=== PATIENT | male | born 1975 | race Caucasian/White ===

== ENCOUNTER 2020-04-16 07:50 | Emergency (ER) | payer BC, SELFPAY ==
--- NOTE | ~2020-04-16 | XR_ITS ---
EXAMINATION: XR abdomen/kub 1V DATE: 04/16/2020 08:59 INDICATION: Right flank pain. Kidney stone. TECHNIQUE: A supine view of the abdomen on 2 radiographs was obtained. COMPARISON: CT abdomen and pelvis 04/16/2020 FINDINGS: There is a 4 mm stone in distal right ureter. There is a 3 mm stone in right kidney. There is a 3 mm stone in left kidney. There are no dilated loops of bowel. IMPRESSION: 1. Stones in the kidneys and distal right ureter. Reviewed, dictated and finalized at location A.
--- NOTE | ~2020-04-16 | CT_ITS ---
EXAMINATION: CT abdomen pelvis wo con DATE: 04/16/2020 08:37 INDICATION: Right flank pain TECHNIQUE: Computed tomography (CT) of the abdomen and pelvis was performed without intravenous contr ast. The dose-length product (DLP) was 341.69 mGy-cm. Automated exposure control and iterative recons truction technique were employed. COMPARISON: 02/13/2018 FINDINGS: The lung bases are clear. The heart size is normal. There is a small sliding hiatal hernia. The liver, spleen, pancreas, gallbladder, and adrenal glands are normal. There is a 5 mm stone of th e right distal ureter which causes mild right hydroureteronephrosis. Nonobstructing stones of the rig ht kidney measure up to 3 mm. There are two nonobstructing 2 mm stones of the left kidney. No patholo gically enlarged abdominal or pelvic lymph nodes are identified. The appendix is normal. There is no free intraperitoneal gas or evidence of bowel obstruction. There is a tiny fat-containing umbilical h ernia. IMPRESSION: 1. 5 mm stone of the right distal ureter causing mild right hydroureteronephrosis. Consider KUB for t reatment planning purposes. 2. Bilateral nephrolithiasis. Reviewed, dictated and finalized at location A. IMPRESSION: 1. 5 mm stone of the right distal ureter causing mild right hydroureteronephros is. Consider KUB for treatment planning purposes. 2. Bilateral nephrolithiasis.
[2020-04-16 07:55] VITALS: BP 160/93; PULSE 99; RESP 18; TEMP 36.1; O2SAT 99
--- NOTE | 2020-04-16 08:06 | ED.GENADULT ---
HPI - General Adult General Chief complaint: Back Pain/Injury Stated complaint: flank pain Time Seen by Provider: 04/16/20 07:52 Source: RN notes reviewed History of Present Illness HPI narrative: Patient presents emergency department from home for right flank pain. Patient symptoms began yesterday. Pain is located right flank and does not radiate. Described as aching in nature. States he has had a previous kidney stone feels similar. States he is taken no previous pain medication. Denies any fevers or chills nausea vomiting diarrhea or any other symptoms Related Data Home Medications Medication Instructions Recorded Confirmed pantoprazole 40 mg PO 04/16/20 Allergies Allergy/AdvReac Type Severity Reaction Status Date / Time No Known Allergies Allergy Unverified 04/16/20 07:59 Review of Systems Review of Systems: Narrative: Gen.: Denies fevers or chills ENT: Denies congestion Respiratory: Denies shortness of breath or cough CV: Denies chest pain or palpitations GI: Denies abdominal pain nausea, emesis or diarrhea reports flank pain denies burning, urgency, frequency or hematuria Musculoskeletal: Denies back pain or muscle pain Neuro: Denies numbness, tingling, weakness or focal weakness Skin: Denies rash Except as documented, all other systems reviewed and negative PMFSH Past Medical History Medical History (Updated 04/16/20 @ 09:18 by Andrew Grider DO) Patient denies significant medical history Social History Social History (Updated 04/16/20 @ 08:07 by Andrew Grider DO) Smoking status: Never smoker Gender identity (if verbalized by the patient): Male Exam Narrative: Exam Narrative: APPEARANCE: No acute distress, nontoxic, resting in bed EYES: EOMI HEENT: Normocephalic, atraumatic, OMM RESPIRATORY: No respiratory distress Clear to auscultation bilaterally with no rhonchi wheezing or rales. CARDIOVASCULAR: Regular rate and rhythm without murmurs rubs or gallops. ABDOMINAL: Soft, nontender, nondistended, no rebound or guarding tender palpation right flank MUSCULOSKELETAl: Moves all extremities. No clubbing, cyanosis or edema. NEURO: Awake and alert. Following commands, speech normal, no focal deficits SKIN:: Warm, dry. No rashes lesions or abrasions PSYCHIATRIC: Normal affect/mood, Course Course Emergency Course: Discussed with patient results of workup and diagnosis. Discussed need for follow-up with primary care, proper use of medication, and reasons to return to the emergency department. Patient understands and agrees to current treatment plan Vital Signs Vital signs: Vital Signs Temperature 97 F L 04/16/20 07:55 Pulse Rate 99 04/16/20 07:55 Respiratory Rate 18 04/16/20 07:55 Blood Pressure 160/93 H 04/16/20 07:55 Pulse Oximetry 99 04/16/20 07:55 Temperature 97 F L 04/16/20 07:55 Pulse Rate 83 04/16/20 09:05 Respiratory Rate 18 04/16/20 09:05 Blood Pressure 143/98 H 04/16/20 09:05 Pulse Oximetry 98 04/16/20 09:05 Medical Decision Making Vital Signs Vital Signs: Vital Signs Temperature 97 F L 04/16/20 07:55 Pulse Rate 99 04/16/20 07:55 Respiratory Rate 18 04/16/20 07:55 Blood Pressure 160/93 H 04/16/20 07:55 Pulse Oximetry 99 04/16/20 07:55 Temperature 97 F L 04/16/20 07:55 Pulse Rate 83 04/16/20 09:05 Respiratory Rate 18 04/16/20 09:05 Blood Pressure 143/98 H 04/16/20 09:05 Pulse Oximetry 98 04/16/20 09:05 Lab Data Result diagrams: 04/16/20 08:03 04/16/20 08:03 Labs: Lab Results 04/16/20 04/16/20 04/16/20 Range/Units 08:03 08:03 08:03 WBC 7.3 (4.5-10.0) K/mm3 RBC 5.19 (4.6-6.20) M/mm3 Hgb 15.7 (14.0-18.0) g/dL Hct 47.1 (42.0-52.0) % MCV 90.8 (80-100) fl MCH 30.3 (26-34) pg MCHC 33.3 (32-36) g/dl RDW 12.4 (11.5-14.5) % Plt Count 232 (150-375) k/mm3 MPV 9.4 (7.4-10.4) fl Immature Gran % (Auto) 0.1 (0-0.
[2020-04-16 08:11] LABS: Basophils Percent Auto 0.6 % (0.2-1.2); Eosinophils Absolute Auto 0.1 K/mm3 (0-0.3); Eosinophils Percent Auto 0.8 % (0-4.4); Hematocrit 47.1 % (42.0-52.0); Hemoglobin 15.7 g/dL (14.0-18.0); Immature Granulocyte Absolute 0.01 K/mm3 (0.00-0.031); Immature Granulocyte Percent A 0.1 % (0-0.5); Lymphocytes Absolute Auto 1.53 K/mm3 (0.9-3.2); Lymphocytes Percent Auto 21.1 % (18.3-44.2); Mean Corpuscular HGB Conc 33.3 g/dl (32-36); Mean Corpuscular Hemoglobin 30.3 pg (26-34); Mean Corpuscular Volume 90.8 fl (80-100); Mean Platelet Volume 9.4 fl (7.4-10.4); Monocytes Absolute Auto 0.5 K/mm3 (0.1-0.6); Monocytes Percent Auto 7.2 % (2.6-8.5); Neutrophils Absolute Auto 5.1 K/mm3 (1.3-6.7); Neutrophils Percent Auto 70.2 % (45.5-73.1); Platelet Count Result 232 k/mm3 (150-375); Red Blood Count 5.19 M/mm3 (4.6-6.20); Red Cell Distribution Width 12.4 % (11.5-14.5); White Blood Count 7.3 K/mm3 (4.5-10.0)
[2020-04-16] MEDS: KETOROLAC 30 MG/ML VIAL (*BKC) IV PUSH (08:12)
[2020-04-16 08:13] LABS: Add Urine Microscopic? NO; Appearance Urine Clear (Clear); Bilirubin Urine Negative (Negative); Blood Urine Negative (Negative); Color Urine Yellow (Yellow); Glucose Urine UA Negative (Negative); Ketones Urine Negative (Negative); Leukocyte Esterase Ur Negative LEU/UL (Negative); Nitrate Urine Negative (Negative); Protein Urine Negative (Negative); Specific Grav Ur 1.027 (1.001-1.035); Urobilinogen Urine Negative mg/dL (<2.0)
[2020-04-16 08:22] LABS: Blood Urea Nitrogen 16 mg/dL (9-20); Calcium 9.8 mg/dL (8.4-10.2); Carbon Dioxide 27 mmol/L (22-30); Chloride 104 mmol/L (98-107); Estimated CRCL calculation 75 ml/min; Estimated Glomerular Filt Rate 60; Glucose 122 mg/dL (75-110); Potassium 3.8 mmol/L (3.4-5.0); Sodium 140 mmol/L (137-145)
[2020-04-16] MEDS: TAMSULOSIN HCL 0.4 MG CAPSULE PO (09:02)
[2020-04-16 09:05] VITALS: BP 143/98; PULSE 83; RESP 18; O2SAT 98
== END 2020-04-16 09:26 | disposition home or self-care (01) ==
PROVIDERS: Emergency Provider Emergency Medicine; PCP Internal Medicine
DX: N13.2 Hydronephrosis with renal and ureteral calculous obstruction (principal)
CPT/HCPCS: 36415; 74018; 74176; 80048; 81003; 85025; 96374; 99284; A9270; J1885

== ENCOUNTER 2020-04-29 16:23 | Outpatient (CLI) | payer BC, SELFPAY ==
--- NOTE | ~2020-04-29 | XR_ITS ---
EXAMINATION: XR abdomen/kub 1V INDICATION: Bilateral kidney stones TECHNIQUE: Supine views of the abdomen were obtained on 2 radiographs. COMPARISON: 04/16/2020 FINDINGS: The previously described right distal ureteral stone is no longer identified. A 3 mm stone is seen in the lower pole of the right kidney. The previously described left kidney stone is not defi nitely identified. The bowel gas pattern is normal. IMPRESSION: 1. Right distal ureteral stone no longer identified. 2. Unchanged right nephrolithiasis. Reviewed, dictated and finalized at location A.
== END 2020-04-29 16:24 | disposition home or self-care (01) ==
PROVIDERS: PCP Internal Medicine; Visit Provider Urology
DX: N20.2 Calculus of kidney with calculus of ureter (principal)
CPT/HCPCS: 74018

== ENCOUNTER 2021-06-14 18:45 | Emergency (ER) | payer BC, SELFPAY ==
[2021-06-14 18:53] VITALS: BP 146/99; PULSE 112; RESP 16; TEMP 41.4; O2SAT 100
[2021-06-14 19:25] VITALS: TEMP 38.1
--- NOTE | 2021-06-14 19:30 | ED.URI ---
HPI - URI/Sore Throat General Chief Complaint: Upper Respiratory Infection Stated Complaint: Headache,Congestion,Cough History of Present Illness HPI Narrative: This a 46-year-old male that has come in to be tested for Covid as he just got back from vacation in [place] patient daughter is positive for Covid and he has been symptomatic with a cough and started to not feel well. Patient is needing a rapid test to see if he is able to go to work. Patient has been vaccinated as well Related Data Home Medications Medication Instructions Recorded Confirmed pantoprazole 40 mg PO 04/16/20 Allergies Allergy/AdvReac Type Severity Reaction Status Date / Time No Known Allergies Allergy Unverified 04/16/20 07:59 Review of Systems Review of Systems: CONSTITUTIONAL: Denies fever, chills, or sweats. EYES: Denies visual changes, redness, or discharge. ENT: Reports rhinorrhea, congestion, sore throat, or otalgia. CARDIOVASCULAR:Denies chest pain, palpitations, or edema. RESPIRATORY: Denies cough or dyspnea. GASTROINTESTINAL: Denies abdominal pain, nausea, vomiting, or diarrhea. GENITOURINARY: Denies dysuria or hematuria. SKIN:[Denies rash or itching. MUSCULOSKELETAL:Denies back pain, joint pain, or myalgia. NEUROLOGIC: Denies headache, numbness, or weakness. PSYCHIATRIC:Denies anxiety or depression PMFSH Past Medical History Medical History (Updated 06/14/21 @ 19:33 by Karlee Mckeon NP) Patient denies significant medical history Social History Social History (Updated 04/16/20 @ 08:07 by Andrew Grider DO) Smoking status: Never smoker Gender identity (if verbalized by the patient): Male Exam Narrative: GENERAL:Well-appearing, well-nourished, and in no acute distress. HEAD:Normocephalic, atraumatic. EYES: PERRLA and EOMI. ENT: Nares clear, no rhinorrhea or epistaxis. Mucous membranes moist. Pharyngeal erythema NECK: Supple. CHEST: Clear to occasional sporadic wheezes auscultation. No respiratory distress. HEART: Regular rate and tachycardic rhythm. Normal peripheral pulses. ABDOMEN: Soft, nontender, nondistended, normal active bowel sounds. EXTREMITIES: Normal range of motion. No edema. SKIN: Warm, dry, no rash. NEURO: No focal deficits. Alert and oriented x3. 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 Positive for Covid Vital Signs Vital signs: Vital Signs Temperature 106.6 F H 06/14/21 18:53 Pulse Rate 112 H 06/14/21 18:53 Respiratory Rate 16 06/14/21 18:53 Blood Pressure 146/99 H 06/14/21 18:53 Pulse Oximetry 100 06/14/21 18:53 Temperature 106.6 F H 06/14/21 18:53 Pulse Rate 112 H 06/14/21 18:53 Respiratory Rate 16 06/14/21 18:53 Blood Pressure 146/99 H 06/14/21 18:53 Pulse Oximetry 100 06/14/21 18:53 MDM - URI/Sore Throat Differential Diagnosis Differential diagnosis: Likely upper respiratory infection, otitis media, sinusitis, viral infection, bronchitis, influenza and pharyngitis Lab Data Labs: Lab Results 06/14/21 Range/Units 19:18 POC SARS CoV-2 Ag Positive (Negative) Discharge Plan Discharge Clinical Impression: COVID-19 Hypertension Qualifiers: Hypertension type: unspecified Qualified Code(s): I10 - Essential (primary) hypertension Patient Disposition: Home, Self-Care Condition: Stable Instructions: Antibiotic Form, How To Wash Your Hands (ED), COVID-19 (Coronavirus Disease 2019) (ED), Face Coverings (Masks) and COVID-19 (ED) Additional Instructions: Covid instructions FOR THE PATIENT AND HOUSEHOLD MEMBERS: Self-quarantine for at least 7 days from symptom onset plus 3 days after being symptom free. When self-quarantined, stay home and practice infection prevention practices including: ? Stay home when you are sick (fever, cough, upper respiratory infection symptoms) ? Wash your hands often with soap and water for 20 seconds or use an alcohol-based hand outboard system operator, especially before eating, after coughing or sneezing and
== END 2021-06-14 19:34 | disposition home or self-care (01) ==
PROVIDERS: Emergency Provider Nurse Practitioner Family; PCP Internal Medicine
DX: U07.1 COVID-19 (principal); I10 Essential (primary) hypertension
CPT/HCPCS: 87426; 99213; C9803; G0463

== ENCOUNTER 2021-11-28 13:09 | Emergency (ER) | payer BC, SELFPAY ==
--- NOTE | ~2021-11-28 | CT_ITS ---
EXAMINATION: CT abd pelvis lumbar wo con DATE: 11/28/2021 14:59 INDICATION: Left flank pain. TECHNIQUE: Computed tomography (CT) of the abdomen and pelvis and lumbar spine was performed without intravenous contrast. Automated exposure control and iterative reconstruction technique were employed . The dose-length product was 1165.82 mGy-cm. COMPARISON: CT abdomen and pelvis 04/16/2020 FINDINGS: CT ABDOMEN AND PELVIS: The visualized portions of the lung bases demonstrate mild atelectasis. No ple ural effusion. The heart size is normal. No pericardial effusion. There is a small sliding hiatal her natasha. There is diffuse hepatic steatosis. The gallbladder, spleen, pancreas, adrenal glands, and right kidney are normal. There are 1 mm and 2 mm stones in left kidney. There is mild left hydronephrosis and hydroureter. There is a 3 mm stone in distal left ureter. There is diverticulosis of the colon wi thout evidence of diverticulitis. The appendix is normal. There are no pathologically enlarged lymph nodes. There is no free intraperitoneal fluid. There is prominent fat in the inguinal canals that may be hernias. CT LUMBAR SPINE: Bone alignment is normal. Partially visualized is chronic anterior wedging of T11 ve rtebral body. There is mild chronic anterior wedging of T12 vertebral body. There is mildly decreased disc height at L4-L5. The following disc levels are specifically discussed: L1-L2: The disc does not extend beyond the endplate margin. There is mild bilateral facet joint osteo arthritis. There is no neural foraminal stenosis. There is no central canal stenosis. L2-L3: The disc does not extend beyond the endplate margin. There is mild bilateral facet joint osteo arthritis. There is no neural foraminal stenosis. There is no central canal stenosis. L3-L4: The disc does not extend beyond the endplate margin. There is mild bilateral facet joint osteo arthritis. There is no neural foraminal stenosis. There is no central canal stenosis. L4-L5: The disc is bulging. There is mild bilateral facet joint osteoarthritis. There is mild bilater al neural foraminal stenosis. There is mild central canal stenosis. L5-S1: The disc does not extend beyond the endplate margin. There is mild bilateral facet joint osteo arthritis. There is no neural foraminal stenosis. There is no central canal stenosis. IMPRESSION: 1. 3 mm stone in distal left ureter with mild left hydronephrosis and hydroureter. 2. Small nonobstructing left kidney stones. 3. Mild lumbar spondylosis. Reviewed, dictated and finalized at location A. 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 3 mm stone in distal left ureter with mild left hydronephrosis and hydrouret er. 2. Small nonobstructing left kidney stones. 3. Mild lumbar spondylosis.
[2021-11-28 13:12] VITALS: BP 156/88; PULSE 109; RESP 16; TEMP 36.2; O2SAT 99
[2021-11-28 13:54] VITALS: BP 143/92; PULSE 105; RESP 18; TEMP 36.8; O2SAT 98
[2021-11-28 14:17] LABS: Basophils Absolute Auto 0.1 K/mm3 (0.0-0.1); Basophils Percent Auto 0.4 % (0.2-1.2); Eosinophils Percent Auto 0.1 % (0-4.4); Hematocrit 46.1 % (42.0-52.0); Hemoglobin 15.5 g/dL (14.0-18.0); Immature Granulocyte Absolute 0.04 K/mm3 (0.00-0.031); Immature Granulocyte Percent A 0.3 % (0-0.5); Lymphocytes Absolute Auto 0.84 K/mm3 (0.9-3.2); Lymphocytes Percent Auto 6.4 % (18.3-44.2); Mean Corpuscular HGB Conc 33.6 g/dl (32-36); Mean Corpuscular Hemoglobin 30.9 pg (26-34); Mean Platelet Volume 9.2 fl (7.4-10.4); Monocytes Absolute Auto 0.7 K/mm3 (0.1-0.6); Neutrophils Absolute Auto 11.5 K/mm3 (1.3-6.7); Neutrophils Percent Auto 87.8 % (45.5-73.1); Platelet Count Result 227 k/mm3 (150-375); Red Blood Count 5.01 M/mm3 (4.6-6.20); Red Cell Distribution Width 12.7 % (11.5-14.5); White Blood Count 13.1 K/mm3 (4.5-10.0)
[2021-11-28 14:28] LABS: Add Urine Microscopic? YES; Appearance Urine Clear (Clear); Bilirubin Urine Negative (Negative); Blood Urine Negative (Negative); Color Urine Yellow (Yellow); Glucose Urine UA Negative (Negative); Ketones Urine Trace mg/dL (Negative); Leukocyte Esterase Ur Negative LEU/UL (Negative); Mucus Urine Rare /lpf; Nitrate Urine Negative (Negative); Protein Urine Negative (Negative); RBC Urine 0-2 /hpf (0-2); Specific Grav Ur 1.024 (1.001-1.035); Urobilinogen Urine Negative mg/dL (<2.0); WBC Urine 0-3 /hpf
[2021-11-28 14:28] LABS: Alanine Aminotransferase 84 U/L (4-50); Albumin Level 4.9 g/dL (3.5-5.1); Alkaline Phosphatase 69 U/L (38-126); Anion Gap 9 mmol/L (8-16); Aspartate Amino Transferase 55 U/L (17-59); Bilirubin,Total 0.9 mg/dL (0.2-1.3); Blood Urea Nitrogen 17 mg/dL (9-20); Calcium 9.8 mg/dL (8.4-10.2); Carbon Dioxide 24 mmol/L (22-30); Chloride 104 mmol/L (98-107); Estimated CRCL calculation 71 ml/min; Estimated Glomerular Filt Rate 55; Glucose 154 mg/dL (65-110); Lipase 91 U/L (23-300); Potassium 4.1 mmol/L (3.4-5.0); Sodium 137 mmol/L (137-145)
[2021-11-28 14:47] VITALS: BP 145/90; PULSE 89; RESP 17; O2SAT 95
--- NOTE | 2021-11-28 14:47 | ED.BACK ---
HPI - Back Pain/Injury General Chief Complaint: Back Pain/Injury Stated Complaint: left lower back pain Time Seen by Provider: 11/28/21 13:48 Source: patient Mode of arrival: ambulatory Limitations: no limitations History of Present Illness HPI Narrative: This is a 46 year old male that presents to the ER for left sided flank pain present since last night. Reports a constant dull ache and intermittent sharp pains. Feels similar to past kidney stones. Reports urinary frequency. He took a hydrocodone today with some relief. Denies fever, dysuria or hematuria. Related Data Home Medications Medication Instructions Recorded Confirmed pantoprazole 40 mg PO 04/16/20 Allergies Allergy/AdvReac Type Severity Reaction Status Date / Time No Known Allergies Allergy Unverified 04/16/20 07:59 Review of Systems Review of Systems: CONSTITUTIONAL: Denies fever GASTROINTESTINAL: Reports abdominal pain. Denies nausea, vomiting GENITOURINARY: Denies dysuria or hematuria. SKIN: Denies rash All systems reviewed & are unremarkable except as noted in HPI and below PMFSH Past Medical History Medical History (Updated 11/28/21 @ 16:04 by Edwige Day PA-C) Patient denies significant medical history Social History Social History (Updated 04/16/20 @ 08:07 by Andrew Grider DO) Smoking status: Never smoker Gender identity (if verbalized by the patient): Male Exam Narrative: GENERAL: Well-appearing, well-nourished, and in no acute distress. HEAD: Normocephalic, atraumatic. EYES: EOMI. CHEST: Clear to auscultation. No respiratory distress. No wheezes rales or rhonchi HEART: Regular rate and rhythm. No murmur heard. Normal peripheral pulses. ABDOMEN: Soft, nontender, nondistended, normal active bowel sounds. No CVA tenderness EXTREMITIES: Normal range of motion. No edema. SKIN: Warm, dry, no rash. NEURO: No focal deficits. Alert and oriented x3. PSYCH: Normal mood and affect Course Consultations Consultation #1: Spoke with Dr. Baez about patient and workup. Patient will be started on Flomax and given pain medication. Patient is to follow up in clinic. Date: 11/28/21 Time: 15:30 Vital Signs Vital signs: Vital Signs Temperature 97.2 F L 11/28/21 13:12 Pulse Rate 109 H 11/28/21 13:12 Respiratory Rate 16 11/28/21 13:12 Blood Pressure 156/88 H 11/28/21 13:12 Pulse Oximetry 99 11/28/21 13:12 Temperature 98.3 F 11/28/21 13:54 Pulse Rate 89 11/28/21 14:47 Respiratory Rate 17 11/28/21 14:47 Blood Pressure 145/90 H 11/28/21 14:47 Pulse Oximetry 95 11/28/21 14:47 MDM - Back Pain/Injury MDM Narrative Medical decision making narrative: Patient presents to the emergency department for left flank pain with history of kidney stones. He is afebrile and nontoxic appearing. Mildly tachycardic upon arrival, this normalized with IV fluid administration. CBC with mild leukocytosis to 13.1. Metabolic panel with evidence of mild dehydration. Patient given a liter of fluids in the ED. UA without evidence of infection. CT scan of the abdomen/pelvis/lumbar spine shows a 3 mm stone in the distal left ureter with mild left hydronephrosis and hydroureter. Mild lumbar spondylosis. Patient was updated on case findings. Spoke with Dr. Baez about patient and workup. Patient will be started on Flomax and given pain medication. Patient is to follow up in clinic. Patient is stable and felt appropriate for further outpatient evaluation. He was given warnings to return to the ER Lab Data Attestation: I reviewed the patient's lab results. Result diagrams: 11/28/21 14:06 11/28/21 14:06 Labs: Lab Results 11/28/21 11/28/21 11/28/21 Range/Units 14:06 14:06 14:12 WBC 13.1 H (4.5-10.0) K/mm3 RBC 5.01 (4.6-6.20) M/mm3 Hgb 15.5 (14.0-18.0) g/dL Hct 46.1 (42.0-52.0) % MCV 92.0 (80-100) fl MCH 30.9 (26-34) pg MCHC 33.6 (32-36) g/dl RDW 12.7
--- NOTE | 2021-11-28 14:47 | PC.NURSE ---
Pt awaiting ct
[2021-11-28] MEDS: MORPHINE SULFATE (*CRX) 2 MG/ML INJ IV PUSH (15:01)
[2021-11-28] MEDS: SODIUM CHLORIDE 0.9% IV 1,000 ML 999 ML IV CONT (15:02)
[2021-11-28] MEDS: ONDANSETRON INJ 4 MG/2 ML VIAL IV PUSH (15:02)
[2021-11-28 16:03] VITALS: BP 153/98; PULSE 82; RESP 17; O2SAT 96
== END 2021-11-28 16:10 | disposition home or self-care (01) ==
PROVIDERS: Physician Assistant; Emergency Provider Family Medicine; PCP Internal Medicine
DX: N13.2 Hydronephrosis with renal and ureteral calculous obstruction (principal); M47.816 Spondylosis without myelopathy or radiculopathy, lumbar region
CPT/HCPCS: 36415; 72131; 74176; 80053; 81001; 83690; 85025; 96361; 96365; 96375; 99284; J0131; J2270; J2405; J7030

== ENCOUNTER 2025-09-16 10:29 | Emergency (ER) | payer BC, SELFPAY ==
--- NOTE | ~2025-09-16 | CT_ITS ---
EXAMINATION: CT abdomen pelvis wo con DATE: 09/16/2025 13:05 INDICATION: Left lower quadrant abdominal pain and left flank pain. TECHNIQUE: Computed tomography (CT) of the abdomen and pelvis was performed without intravenous contrast. Automated exposure control and iterative reconstruction technique were employed. The dose-length product was 618.46 mGy-cm. COMPARISON: 11/28/2021 FINDINGS: Lung bases are clear. Heart size normal. No pericardial or pleural effusion. Liver, gallbladder, spleen, pancreas, bilateral adrenal glands are normal. Bilateral nephrolithiasis with 5 nonobstructing stones in the right kidney is relatively 4 mm and 4 stones in the left kidney measuring up to 5 mm. There is an obstructing 4-5 mm stone at the left ureter vesicular junction with mild left hydroureteronephrosis. No right-sided ureteral stones. Bladder is normal. Mild scattered diverticulosis without adjacent inflammatory change to suggest diverticulitis. Small bowel and appendix are normal. Very small fat-containing umbilical hernia. Small bilateral fat-containing inguinal hernias. No free intraperitoneal gas or fluid. No pathologically enlarged abdominal or pelvic lymphadenopathy. Mild lower lumbar and mild to moderate thoracic spondylosis. IMPRESSION: 1. Bilateral nephrolithiasis with obstructing 4-5 mm stone at the left ureterovesicular junction with mild left hydroureteronephrosis. Reviewed, dictated and finalized at location A. R ASSISTANT IMPRESSION: 1. Bilateral nephrolithiasis with obstructing 4-5 mm stone at the left ureterov esicular junction with mild left hydroureteronephrosis.
[2025-09-16 10:32] VITALS: BP 150/99; PULSE 99; RESP 17; TEMP 36.6; O2SAT 100
[2025-09-16 12:09] LABS: Hematocrit 43.9 % (42.0-52.0); Hemoglobin 14.8 g/dL (14.0-18.0); Immature Granulocyte Percent A 0.4 % (0-0.5); Lymphocytes Absolute Auto 0.88 K/mm3 (0.9-3.2); Mean Corpuscular HGB Conc 33.7 g/dl (32-36); Mean Corpuscular Hemoglobin 31.1 pg (26-34); Mean Corpuscular Volume 92.2 fl (80-100); Nucleated Red Blood Cells Absolute Auto 0.000 K/mm3 (0.0-0.012); Nucleated Red Blood Cells Perc 0.0 % (0.0-0.2); Platelet Count Result 260 k/mm3 (150-375); Red Blood Count 4.76 M/mm3 (4.6-6.20); White Blood Count 12.9 K/mm3 (4.5-10.0)
[2025-09-16 12:24] LABS: Add Urine Microscopic? YES; Appearance Urine Cloudy (Clear); Glucose Urine UA Negative (Negative); Leukocyte Esterase Ur Negative LEU/UL (Negative); Need Manual Microscopic Reviewed; Nitrate Urine Negative (Negative); Non Pathogenic Casts 0-2; Specific Grav Ur 1.024 (1.001-1.035)
[2025-09-16 12:29] LABS: Alanine Aminotransferase 34 U/L (6-50); Albumin Level 5.0 g/dL (3.5-5.1); Alkaline Phosphatase 60 U/L (38-126); Anion Gap 10 mmol/L (4-12); Aspartate Amino Transferase 32 U/L (17-59); Bilirubin,Total 0.9 mg/dL (0.2-1.3); Blood Urea Nitrogen 17 mg/dL (9-20); Calcium 9.8 mg/dL (8.4-10.2); Carbon Dioxide 25 mmol/L (22-30); Chloride 102 mmol/L (98-107); Estimated Glomerular Filt Rate > 60; Glucose 96 mg/dL (65-110); Lipase 162 U/L (23-300); Potassium 4.2 mmol/L (3.4-5.0); Sodium 137 mmol/L (137-145); Total Protein 8.3 g/dL (6.3-8.2)
--- NOTE | 2025-09-16 12:38 | ED.GENADULT ---
HPI - General Adult General Chief complaint: Abdominal Pain Stated complaint: LLQ pain Time Seen by Provider: 09/16/25 12:36 History of Present Illness HPI narrative: 50-year-old male with prior history of kidney stones present to the emergency department for evaluation for left lower quadrant pain and left flank pain. Patient reports the abdominal pain started in his left lower quadrant approximately 630 this morning but approximately 10:00 a.m. he did start having left flank pain as well. Patient denies any pain with urination. Patient's most recent kidney stone was October. Patient did not need any surgical intervention to pass that stone and patient does not currently follow up with Urology. Patient denies any associated nausea vomiting diarrhea. Patient denies any other significant past medical history other than high cholesterol Related Data Home Medications ?Medication ?Instructions ?Recorded ?Confirmed ?Last Taken ?Type pantoprazole 40 mg tablet,delayed 40 mg PO 04/16/20 Unknown History release Allergies Allergy/AdvReac Type Severity Reaction Status Date / Time No Known Allergies Allergy Verified 09/16/25 10:29 Review of Systems Review of Systems: All systems reviewed & are unremarkable except as noted in HPI and below PMFSH Past Medical History Medical History (Updated 09/16/25 @ 13:54 by Jovani England MD) Patient denies significant medical history Social History Social History (Updated 04/16/20 @ 08:07 by Andrew Grider, DO) Smoking status: Never smoker Gender identity (if verbalized by the patient): Male Exam Narrative: APPEARANCE: Uncomfortable appearing HEAD: normocephalic, atraumatic. EYES: PERRLA/EOMI, conjunctivae clear. NOSE: Normal no drainage EARS:TMS clear with good light reflex. THROAT: Pharynx clear, no exudate. NECK: Supple. No adenopathy, no masses. RESPIRATORY: Airway patent, respirations nonlabored. Clear to auscultation bilaterally, no rales, rhonchi, wheezing. CARDIOVASCULAR: Regular rate and rhythm without murmurs rubs or gallops. ABDOMINAL: Left lower quadrant and left flank pain without tenderness to palpation MUSCULOSKELETAL: Moves all extremities. Strength/ROM intact, No edema, No calf tenderness. NEURO: Alert. Cranial nerves II through XII intact. Grossly intact SKIN: Warm, dry. Normal Color Course Vital Signs Vital signs: Vital Signs Temperature 97.9 F 09/16/25 10:32 Pulse Rate 99 09/16/25 10:32 Respiratory Rate 17 09/16/25 10:32 Blood Pressure 150/99 H 09/16/25 10:32 Pulse Oximetry 100 09/16/25 10:32 Oxygen Delivery Room Air 09/16/25 10:32 Temperature 97.9 F 09/16/25 10:32 Pulse Rate 68 09/16/25 14:03 Respiratory Rate 18 09/16/25 14:03 Blood Pressure 130/86 09/16/25 14:03 Pulse Oximetry 96 09/16/25 14:03 Oxygen Delivery Room Air 09/16/25 10:32 Medical Decision Making MDM Narrative Medical decision making narrative: 42-year-old male present to the emergency department for evaluation for left flank left lower quadrant pain. Patient is currently afebrile but does have a leukocytosis of 12.9 hemoglobin 14.8. Patient has no acute abnormalities on his CMP including normal kidney function. Patient did have some ketones in his urine but negative for blood. CT scan was ordered to evaluate for ureteral calculi. Bilateral nephrolithiasis with obstructing 4-5 mm stone at the left ureterovesicular junction with mild left hydroureteronephrosis. Patient family were updated on the results of the workup and treatment plan. Patient was provided medications for pain control for home and patient was started on Flomax the emergency department. All questions concerns were addressed patient was well-appearing at time of discharge. Differential Diagnosis Differential Diagnosis: Ureteral calculi calculi, hydronephrosis, urinary tract infection Vital Signs Vital Signs: Vital Signs Temperature 97.9 F 09/16/25 10:32 Pulse Rate 99 09/16/25 10:32 Respiratory Rate 17 09/16/25 10:32 Blood Pressure 150/99 H 09/16/25 10:32 Pulse Oximetry 100 09/16/25 10:32 Oxygen Delivery Room Air 09/16/25 10:32 Temperature 97.9 F 09/16/25 10:32 Pulse Rate 68 09/16/25 14:03 Respiratory Rate 18 09/16/25 14:03 Blood Pressure 130/86 09/16/25 14:03 Pulse Oximetry 96 09/16/25 14:03 Oxygen Delivery Room Air 09/16/25 10:32 Lab Data Lab results reviewed: Yes I reviewed the patient's lab results. 09/16/25 11:58 09/16/25 11:58 Labs: Lab Results 09/16/25 Range/Units 11:58 WBC 12.9 H (4.5-10.0) K/mm3 RBC 4.76 (4.6-6.20) M/mm3 Hgb 14.8 (14.0-18.0) g/dL Hct 43.9 (42.0-52.0) % MCV 92.2 (80-100) fl MCH 31.1 (26-34) pg MCHC 33.7 (32-36) g/dl RDW 12.8 (11.5-14.5) % Plt Count 260 (150-375) k/mm3 MPV 9.5 (7.4-10.4) fl Immature Gran % (Auto) 0.4 (0-0.5) % Neut % (Auto) 89.6 H (45.5-73.1) % Lymph % (Auto) 6.8 L (18.3-44.2) % [place] % (Auto) 2.9 (2.6-8.5) % Eos % (Auto) 0.0 (0-4.4) % Baso % (Auto) 0.3 (0.2-1.2) % Lymph # (Auto) 0.88 L (0.9-3.2) K/mm3 [place] # (Auto) 0.4 (0.1-0.6) K/mm3 Eos # (Auto) 0.0 (0-0.3) K/mm3 Baso # (Auto) 0.0 (0.0-0.1) K/mm3 Abs Immat Gran (auto) 0.05 H (0.00-0.031) K/mm3 Absolute Neuts (auto) 11.6 H (1.3-6.7) K/mm3 Absolute Nucleated RBC 0.000 (0.0-0.012) K/mm3 Nucleated RBC % 0.0 (0.0-0.2) % Sodium 137 (137-145) mmol/L Potassium 4.2 (3.4-5.0) mmol/L Chloride 102 (98-107) mmol/L Carbon Dioxide 25 (22-30) mmol/L Anion Gap 10 (4-12) mmol/L BUN 17 (9-20) mg/dL Creatinine 1.09 (0.7-1.3) mg/dL Estim Creat Clear Calc Not Reportable Estimated GFR > 60 (59 - ) Glucose 96 (65-110) mg/dL Calcium 9.8 (8.4-10.2) mg/dL Total Bilirubin 0.9 (0.2-1.3) mg/dL AST 32 (17-59) U/L ALT 34 (6-50) U/L Alkaline Phosphatase 60 (38-126) U/L Total Protein 8.3 H (6.3-8.2) g/dL Albumin 5.0 (3.5-5.1) g/dL Lipase 162 (23-300) U/L Urine Color Yellow (Yellow) Urine Appearance Cloudy H (Clear) Urine pH 5.5 (5.0-9.0) Ur Specific [place] 1.024 (1.001-1.035) Urine Protein Negative (Negative) mg/dL Urine Glucose (UA) Negative (Negative) mg/dL Urine Ketones 1+ H (Negative) mg/dL Ur Blood (Man) Negative (Negative) Urine Nitrate Negative (Negative) Urine Bilirubin Negative (Negative) Urine Urobilinogen 0.2 (<2.0) mg/dL Add Ur Microanalysis Reviewed Leukocyte Esterase Rfl Negative (Negative) JON/UL Urine RBC 0-2 (0-2) /hpf Urine WBC 0-5 (0-3) /hpf Ur Squamous Epith Cells None seen (Few) /hpf Urine Bacteria None seen /hpf Urine Casts 0-2 Urine Mucus Present /lpf Imaging Data Radiologist's impression: Impressions Abdomen/Pelvis CT 09/16/25 13:07 IMPRESSION: 1. Bilateral nephrolithiasis with obstructing 4-5 mm stone at the left ureterovesicular junction with mild left hydroureteronephrosis. Discharge Plan Discharge Clinical Impression: Calculus, ureteral Patient Disposition: Home Condition: Stable Instructions: Antibiotic Form, Kidney Stones (ED), How to Strain Your Urine (ED), Flank Pain (ED) Additional Instructions: Ibuprofen for pain control. Zofran for nausea control. [place] as needed for additional pain control. Flomax as directed to help you pass the stone. Have close follow-up with Urology. If you have any worsening symptoms then please call or return to the emergency department. Patient Language: Vietnamese Prescriptions: New hydrocodone-acetaminophen 5-325 mg tablet 1 tablet PO Q12H PRN (Reason: pain) Qty: 14 0RF tamsulosin [Flomax] 0.4 mg capsule 0.4 mg PO DAILY 14 Days Qty: 14 0RF ondansetron 4 mg tablet,disintegrating 4 mg PO Q8H PRN (Reason: nausea and vomiting) Qty: 14 0RF naproxen [Naprosyn] 500 mg tablet 500 mg PO BID 7 Days Qty: 14 0RF No Action albuterol sulfate [Ventolin HFA] 90 mcg/actuation HFA aerosol inhaler 2 puff inhalation QID PRN (Reason: shortness of breath or wheezing) Qty: 8.5 0RF pantoprazole 40 mg tablet,delayed release (DR/EC) 40 mg PO tamsulosin [Flomax] 0.4 mg capsule 0.4 mg PO DAILY Qty: 5 0RF hydrocodone-acetaminophen 5-325 mg tablet 1 tablet PO Q4H PRN (Reason: pain) Qty: 10 0RF ibuprofen [IBU] 600 mg tablet 600 mg PO Q6H PRN (Reason: pain) Qty: 20 0RF hydrocodone-acetaminophen 5-325 mg tablet 1 tablet PO Q6H PRN (Reason: pain) Qty: 20 0RF tamsulosin 0.4 mg capsule 0.4 mg PO DAILY 7 Days Qty: 7 0RF Follow-up/Referrals: Edd [place] MD [Physician, Urology] Gayatri,Ernesto Rios MD [Primary Care Provider, Unknown]
[2025-09-16] MEDS: HYDROmorphone HCL INJ (*CRX) 1 MG/ML SYR IV PUSH (13:13)
[2025-09-16] MEDS: TAMSULOSIN HCL 0.4 MG CAPSULE PO (13:34)
[2025-09-16] MEDS: KETOROLAC 30 MG/ML VIAL (*BKC) IV PUSH (13:35)
[2025-09-16 14:03] VITALS: BP 130/86; PULSE 68; RESP 18; O2SAT 96
--- OUTSIDE RECORDS SUMMARY | 2025-09-16 15:03 | XMS_ITS | Clinical Summary ---
Author Organization [facility] [place] [address] [place] [address] Care Team Providers Care It Telecom Technician Name Role Phone Melani Lucia NP Primary Care Provider [phone] Allergies No known active allergies Medications famotidine (PEPCID) 20 mg tablet Take 1 tablet (20 mg total) by mouth 2 (two) times a day Active losartan (COZAAR) 50 mg tabletIndicatio ns:Hypertension , essential Take 1 tablet (50 mg total) by mouth daily 90 tablet 5 Active tirzepatide, weight loss, (ZEPBOUND) 12.5 mg/0.5 mL pen injectorIndicat ions:Obesity (BMI 30-39.9) Inject 0.5 mL (12.5 mg total) under the skin every 7 days 2 mL 5 Active tirzepatide, weight loss, (ZEPBOUND) 10 mg/0.5 mL pen injectorIndicat ions:Weight Loss Management for Obese Patient (BMI >= 30) Inject 0.5 mL (10 mg total) under the skin every 7 days 2 mL 1 5 09/08/20 25 Discontinued tirzepatide, weight loss, (Zepbound) 10 mg/0.5 mL pen injectorIndicat ions:Class 2 obesity due to excess calories without serious comorbidity with body mass index (BMI) of 37.0 to 37.9 in adult INJECT 0.5 ML (10 MG TOTAL) UNDER THE SKIN EVERY 7 DAYS 3 mL 1 5 09/11/20 25 Discontinued Active Problems Problem Noted Date Diagnosed Date Flu vaccine need 08/04/2025 Weight loss 08/04/2025 Positive colorectal cancer screening using Colog uard test 12/31/2024 Obesity (BMI 30-39.9) 11/25/2024 Assessment & Plan (08/04/2025 10:48 AM CDT): Discussed the patients BMI: The BMI is above average BMI management is complete. BMI follow-up includes: Nutrition Counseling and education provided Assessment & Plan (07/07/2025 3:13 PM CDT): Discussed the patients BMI: The BMI is above average BMI management is complete. BMI follow-up includes: Nutrition Counseling and education provided Assessment & Plan (12/30/2024 3:10 PM CHIPPER OPERATOR): Discussed the patient's BMI. The BMI is above average. BMI management plan is completed. BMI Follow-up includes: nutrition counseling, exercise counseling and education provided. Assessment & Plan (12/09/2024 3:07 PM CHIPPER OPERATOR): Discussed the patients BMI: The BMI is above average BMI management is complete. BMI follow-up includes: Nutrition Counseling and education provided Assessment & Plan (11/25/2024 10:07 AM CHIPPER OPERATOR): Discussed the patients BMI: The BMI is above average BMI management is complete. BMI follow-up includes: Nutrition Counseling and education provided Screening for diabetes mellitus 11/25/2024 Hypertension, essential 11/25/2024 Weight gain 11/25/2024 Assessment & Plan (11/25/2024 10:30 AM CHIPPER OPERATOR): This is a significant, separately identifiable problem that was evaluated and managed on the same day as the wellness exam Schatzki ring of distal esophagus Resolved Problems Problem Noted Date Diagnosed Date Resolved Date Class 2 obesity due to exces s calories without serious comorbidity with body mass index (BMI) of 37.0 to 37.9 in adult 12/31/202404/2025 Overview (12/31/2024): Diet and exercise on a regular basis as tolerated Encounters Date Type Department Care Team Description 09/16/2025 Nurse Triage [address] [phone] Melani Lucia, SUSTAINABILITY DIRECTOR 09/11/[address] [phone] Melani Lucia, SUSTAINABILITY DIRECTOR 08/18/2025 2:30 PM CDT Office Visit [address] [phone] Melani Lucia, CHACE Hypertension, essential (Primary Dx); BMI 31.0-31.9,adult; Obesity (BMI 30-39.9); Screening for diabetes mellitus 08/04/2025 10:30 AM CDT Office Visit [address] [place] [phone] Melani Lucia, CHACE Hypertension, essential (Primary Dx); BMI 31.0-31.9,adult; Obesity (BMI 30-39.9); Flu vaccine need; Weight loss 07/07/2025 3:00 PM CDT Office Visit [address] [phone] Melani Lucia NP Hypertension, essential (Primary Dx); BMI 32.0-32.9,adult; Obesity (BMI 30-39.9); Class 2 obesity due to excess calories without serious comorbidity with body mass index (BMI) of 37.0 to 37.9 in adult; Encounter for vaccination from Last 3 Months Immunizations Immunization Administration Dates Next Due Influenza, Quadrivalent, Spl it, Intramuscular 08/23/2019 Influenza, Trivalent, Preser vative Free, Intramuscular 08/04/2025 Influenza, Unspecified 07/14/2024 Tdap 07/07/2025,02/17/2015,07/04/2014 Surgical History Surgery Date Site/Laterality Comments VASECTOMY ULNAR NERVE REPAIR Bilateral CARPAL TUNNEL RELEASE Right DEBRIDEMENT TENNIS ELBOW Left UPPER GASTROINTESTINAL ENDOSCOPY COLONOSCOPY 01/09/2025 Medical History Medical History Date Comments Schatzki ring of distal esophagus Hiatal hernia 2018 Hypertension Family History Medical History Relation Name Comments htn Brother Diabetes type II Father No Known Problems Mother No Known Problems Sister Relation Name Status Comments Brother Alive Father Alive Mother Alive Sister Alive Social History Tobacco Use Types Packs/Day Years Used Date Smoking Tobacco: Never Smokeless Tobacco: Never Tobacco Cessation:Counseling Given: Not Answered Alcohol Use Standard Drinks/Week Comments Yes 0 (1 standard drink = 0.6 oz pur e alcohol) PHQ-2 Answer Date Recorded PHQ-2 Total Score (If total score is 3 or more points, staff should administer the PHQ-9) 0 08/18/2025 AUDIT-C Answer Date Recorded Q1: How often do you have a drink containing alc ohol? Monthly or less 08/18/2025 Q2: How many drinks containi ng alcohol do you have on a typical day when you are drinking? 1 or 2 08/18/2025 Q3: How often do you have si x or more drinks on one occasion? Never 08/18/2025 Personal Safety Answer Date Recorded Have you ever been in or are you currently in a harmful physical or emotional relationship or is someone making you feel afraid or unsafe? Denies 01/09/2025 Sex and Gender Information Value Date Recorded Sex Assigned at Not on file Legal Sex Male 4:07 PM CDT Gender Identity Not on file Sexual Orientation Not on file Last Filed Vital Signs Vital Sign [place] Time Taken Comments Blood Pressure 120/70 08/18/2025 2:45 PM CDT Pulse 85 08/18/2025 2:45 PM CDT Temperature 37 C (98.6 F) 08/18/2025 2:45 PM CDT Respiratory Rate 15 01/09/2025 2:10 PM CDT Oxygen Saturation 97% 08/18/2025 2:45 PM CDT Inhaled Oxygen Concentration - - Weight 92.5 kg (204 lb) 08/18/2025 2:45 PM CDT Height 172.7 cm (5' 8) 08/18/2025 2:45 PM CDT Body Mass Index 31.02 08/18/2025 2:45 PM CDT Plan of Treatment Health Maintenance Due Date Last Done Comments Hepatitis C Screening 1975 Hepatitis B Screening 1995 Covid-19 Vaccine ( season) 2025 02/05/2021 Regular Well Visit/Exam 18-64 11/25/2025 11/25/2024 Depression Screening 08/18/2026 08/18/2025, 08/04/2025, 07/07/2025, Additional history exists Colon Cancer Screening-Colonoscopy 01/09/2035 01/09/2025 DTaP/Tdap/Td Vaccine (4 - Td or Tdap) 07/07/2035 07/07/2025, 02/17/2015, 07/04/2014 Influenza Vaccine Completed 08/04/2025, , 08/23/2019 Pneumococcal vaccine <65 Aged Out No longer eligible based on patient's age to complete this topic Procedures Procedure Name Priority Date/Time Associated Diagnosis Comments POCT HEMOGLOBIN A1C Routine 08/18/2025 3 :06 PM CDT Screening for diabetes mellitus COLONOSCOPY 01/09/2025 1:27 PM CDT from Last 3 Months or Most Recently Relevant to Health Maintenance Results * POCT hemoglobin A1c (08/18/2025 3:06 PM CDT) Hemoglobin A1C, POC 5.2 4.0 - 5.6 % Blood 08/18/2025 3:06 PM CDT Melani Lucia NP POINT OF CARE TEST ORDERABLES Final Result * Colonoscopy (01/09/2025 1:27 PM CDT) Anatomical Region Laterality Modality Other Narrative Procedure Note Pete Locke MD - 01/09/2025 1:27 PM CDT [facility] GI ENDOSCOPY Patient Name: Jaiden Witt Procedure Date: 01/09/2025 1:27 PM Date of : 1975 Admit Type: Outpatient Age: 49 Gender: Male Attending MD: Pete Locke M.D. Room: [facility] ENDOSCOPY ROOM 06 Note Status: Assembly Supervisor Override Procedure: Colonoscopy Indications: Abnormal Cologuard Referring MD: Providers: Pete Locke M.D. Medicines: See the Anesthesia note for documentation of the administered medications Complications: No immediate complications. Estimated Blood Loss: Estimated blood loss was minimal. Procedure: Pre-Anesthesia Assessment: - Prior to the procedure, a History and Physicalwas performed, and patient medications and allergieswere reviewed. The risks and benefits of the procedureand the sedation options and risks were discussed withthe patient. All questions were answered and informed consent was obtained. Patient identification and proposed procedure were verified. After reviewingthe risks and benefits, the patient was deemed in satisfactory condition to undergo the procedure.The anesthesia plan was to use monitored anesthesiacare (MAC). Immediately prior to administration of medications, the patient was re-assessed foradequacy to receive sedatives. The heart rate, respiratory rate, oxygen saturations, blood pressure, adequacyof pulmonary ventilation, and response to care were monitored throughout the procedure. The physical status of the patient was re-assessed after the procedure. The benefits, risks and alternatives of theprocedure and sedation were discussed and informed consentwas obtained. All questions were answered. Please referto the signed informed consent document in the medical record. The scope was passed under direct vision.The CF-[id number] colonoscope was introduced through theanus and advanced to the terminal ileum, with identification of the appendiceal orifice and IC valve. The colonoscopy was performed without difficulty. The patient tolerated the procedurewell. The quality of the bowel preparation was good.Scope insertion time was 4 minutes. Scope withdrawal time was 8 minutes. Prep was administered in a splitdose. Findings: The perianal and digital rectal examinations were normal. The visualized terminal ileum appeared normal. Two sessile polyps were found in the rectum. The polyps were 6 mm in size. These polyps were removed with a cold snare. Resection and retrieval were complete. Mild sigmoid colon diverticulosis. Internal hemorrhoids were found. The hemorrhoids were small. Impression: - The examined portion of the terminal ileum was normal. - Two 6 mm polyps in the rectum, removed with acold snare. Resected and retrieved. - Diverticulosis. - Internal hemorrhoids. Recommendation: - Await pathology results. - Resume previous diet today. - Discharge patient to home. - Increase fiber. - Patient has a contact number available for emergencies. The signs and symptoms of potential delayed complications were discussed with thepatient. Return to normal activities tomorrow. Written discharge instructions were provided to thepatient. - I would be happy to see you in my GI clinic ifyou have further questions or concerns or if symptoms progress Pete Locke M.D. 01/09/2025 1:57:20 PM Number of Addenda: 0 Note Initiated On: 01/09/2025 1:27 PM Recognized by the [place] [employer] for promoting quality in endoscopy Pete Locke MD ENDOSCOPY PROCEDURES Edit ed Result - Final from Last 3 Months or Most Recently Relevant to Health Maintenance Insurance [employer] BLUE ACCESS CHOICE [place] Care Teams It Telecom Technician Relationship Specialty Start Date End Date Melani Lucia NP [address] [facility] [address] [place] [address] PCP - General Internal Medicine 11/25/24
--- OUTSIDE RECORDS SUMMARY | 2025-09-16 15:03 | XMS_ITS | Encounter Summary ---
Author Organization [facility] Address [address] [place] [address] Care Team Providers Care After School Program Coordinator Name Role Phone Melani Lucia DAIRY HELPER Primary Care Provider [phone] Reason for Visit * Reason Onset Date Comments Abdominal Pain 09/16/2025 Encounter Details Date Type Department Care Team (Late st Contact Info) Description 09/16/2025 Nurse Triage [facility] Family Medicine [address] [place] [address] Melani Lucia, DAIRY HELPER [address] [place] [address] Social History Tobacco Use Types Packs/Day Years Used Date Smoking Tobacco: Never Smokeless Tobacco: Never Alcohol Use Standard Drinks/Week Comments Yes 0 [...] on file Sexual Orientation Not on file documented as of this encounter Miscellaneous Notes * Telephone Encounter - Treasure [place] RN - 09/16/2025 10:03 AM BAND SAW OPERATOR CAKE CUTTING Access Center Nurse Triage: Reason for Conversation Abdominal Pain Background ALEX 08/18/25 Cc: moderate to severe abdominal pain At about 0630 this morning he developed abdominal pain that is now radiating to the back on his left side. He has had kidney stones in the past that caused pain in his lower back but never had this level of abdominal pain before. He has the urge to have a bm and to urinate but when he sits down to go, he can only go a little bit at a time. No visible blood in the urine. He doesn't have a thermomet er but he is having chills. The abdominal pain is below the umbilicus. Pain level is a 7-8/10. No vomitting. Last BM was yesterday and was normal for him. He took a Prilosec this morning thinking it would help if this was gas pains, but it didn't calm his symptoms at all. He does have some mild pain that radiates down towards the scrotum. Disposition indicated is ED Now due to severe pain. I advised the patient to go to his local/closed ED. He agrees. Disposition Go to ED Now Reason for Disposition Pain in scrotum lasts > 1 hour Protocols Used Abdominal Pain - [id number]-NS SAW OPERATOR CAKE CUTTING * Telephone Encounter - Treasure Mills RN - 09/16/2025 9:54 AM BAND SAW OPERATOR CAKE CUTTING Regarding: Moderate to Severe abdominal pain ----- Message from [place] R sent at 09/16/2025 9:50 AM BAND SAW OPERATOR CAKE CUTTING ----- Symptom Based Call Chief Complaint(s): Moderate to Severe abdominal pain Duration: Today What type of symptom(s) is the patient experiencing? Red Flag. Is the patient concerned they are experiencing a medical emergency requiring an ambulance? No Additional Comments: patient states pain was so severe he had to leave work but denies any other symptoms Does message need to be routed? Yes-Action Needed SAW OPERATOR CAKE CUTTING documented in this encounter Plan of Treatment Not on file documented as of this encounter Visit Diagnoses Not on filedocumented in this encounter Care Teams After School Program Coordinator Relationship Specialty Start Date End Date Melani Lucia NP [address] [address] PCP - General Internal Medicine 11/25/24 documented as of this encounter
--- OUTSIDE RECORDS SUMMARY | 2025-09-16 15:03 | XMS_ITS | Clinical Summary ---
Author Organization [facility] Address [address] [place], [place] [id number] Care Team Providers Care Manager Metrology Name Role Phone Ernesto Mendieta MD Primary Care Provider [phone] Social History Tobacco Use Types Packs/Day Years Used Date Smoking Tobacco: Never Assessed Sex and Gender Information Value Date Recorded Sex Assigned at Not on file Legal Sex Male 7:37 PM CDT Gender Identity Not on file Sexual Orientation Not on file Plan of Treatment Health Maintenance Due Date Last Done Comments Colorectal Cancer Screening Colonoscopy (10 Years) 1975 Annual Physical 02/14/1980 Hepatitis C 1995 DTaP, Tdap and Td Vaccines ( 1 - Tdap) 02/14/1996 Hepatitis B Vaccines (1 of 3 - 19+ 3-dose series) 02/14/1996 COVID-19 Vaccine ( - 2024-2 6 season) 2025 Influenza Adult (#1) 2025 Hepatitis A Vaccines Aged Out No long er eligible based on patient's age to complete this topic Meningococcal B Vaccine Aged Out No l onger eligible based on patient's age to complete this topic Meningococcal Vaccine Aged Out No amnada taj eligible based on patient's age to complete this topic Pneumococcal Vaccine: Pediat rics (0 to 5 Years) and At-Risk Patients (6 to 49 Years) Aged Out No longer eligible b ased on patient's age to complete this topic RSV Immunizations Under 20 Months Aged Out No longer eligible based on patient's age to complete this topic Care Teams Manager Metrology Relationship Specialty Start Date End Date Ernesto Mendieta MD PCP - General 02/17/15
--- OUTSIDE RECORDS SUMMARY | 2025-09-16 15:03 | XMS_ITS | Encounter Summary ---
Author Organization [facility] Address [facility] [place] [address] Care Team Providers Care Sand Digger Name Role Phone Ernesto Mendieta MD Primary Care Provider [phone] Encounter Details Date Type Department Care Team (Late st Contact Info) Description 09/01/2017 Abstract [place] [address] , Generic Conversion, Social History Tobacco Use Types Packs/Day Years Used Date Smoking Tobacco: Never Assessed Sex and Gender Information Value Date Recorded Sex Assigned at Not on file Legal Sex Male 7:37 PM CDT Gender Identity Not on file Sexual Orientation Not on file documented as of this encounter Plan of Treatment Not on file documented as of this encounter Visit Diagnoses Not on filedocumented in this encounter Care Teams Sand Digger Relationship Specialty Start Date End Date Ernesto Mendieta MD PCP - General 02/17/15 documented as of this encounter
== END 2025-09-16 14:05 | disposition home or self-care (01) ==
PROVIDERS: Emergency Provider Emergency Medicine; PCP Internal Medicine
DX: N13.2 Hydronephrosis with renal and ureteral calculous obstruction (principal); Z87.442 Personal history of urinary calculi
CPT/HCPCS: 36415; 74176; 80053; 81001; 83690; 85025; 96374; 96375; 99284; A9270; J1171; J1885

== ENCOUNTER 2025-10-24 09:31 | Emergency (ER) | payer BC, SELFPAY ==
--- NOTE | ~2025-10-24 | CT_ITS ---
CT ABDOMEN AND PELVIS WITHOUT CONTRAST Clinical History: flank pain Comparison: 09/16/2025 Technique: Unenhanced axial images lung bases to symphysis pubis Coronal, sagittal reformats CT images acquired with automatic exposure control for dose reduction DLP: 483 mGy-cm Findings: Without intravenous contrast, sensitivity for detecting visceral parenchymal abnormalities decreased. Lung bases: Clear. Visualized heart and pericardium: Unremarkable. Liver: Unremarkable. Gallbladder: Unremarkable. Spleen: Unremarkable. Pancreas: Unremarkable. Adrenal glands: Unremarkable. Kidneys: Right kidney- No hydronephrosis. Small stones. Left kidney- hydronephrosis. Small stone. Distal esophagus/stomach: Small hiatal hernia. Small bowel loops: Normal caliber and wall thickness. Colon: Diverticula. Normal caliber and wall thickness. Normal RLQ appendix. Nodes: No enlarged nodes. Peritoneum: No ascites. No free intraperitoneal air. Urinary bladder: 5 mm stone left UVJ. Prostate: Unremarkable. Bones: No acute bony abnormality. Soft tissues: Small inguinal hernias with fat. Unopacified abdominal aorta: No aneurysmal dilatation. IMPRESSION: 1. Persistent 5 mm stone left UVJ with persistent left hydronephrosis. Reviewed, dictated and finalized at location R. NE SUPERVISOR
[2025-10-24 09:32] VITALS: BP 127/82; PULSE 98; RESP 15; TEMP 36.6; O2SAT 100
--- NOTE | 2025-10-24 10:13 | ED_ITS ---
HPI - Abdominal Pain General Chief Complaint: Abdominal Pain Stated Complaint: abd pain Time Seen by Provider: 10/24/25 10:13 History of Present Illness HPI narrative: 50-year-old male with history of renal colic presents emergency department with 1 day of left-sided flank pain with associated nausea but no vomiting. He denies any rash denies any fevers or chills denies any urinary symptoms. States he has not required any intervention with his kidney stones in the past. States that the pain radiates into his groin denies any testicular pain. Related Data Home Medications ?Medication ?Instructions ?Recorded ?Confirmed ?Last Taken ?Type pantoprazole 40 mg tablet,delayed 40 mg PO 04/16/20 U nknown History release Allergies Allergy/AdvReac Type Severity Reaction Status Date / Time No Known Allergies Allergy Verified 10/24/25 09:36 Review of Systems 2 Review of Systems: All systems reviewed & are unremarkable except as noted in HPI and below PMFSH Past Medical History Medical History (Updated 10/24/25 @ 11:49 by Iglesia Owens MD) Patient denies significant medical history Social History Social History (Updated 04/16/20 @ 08:07 by Andrew Grider, DO) Smoking status: Never smoker Gender identity (if verbalized by the patient): Male Exam 2 Narrative: EXAMINATION OF ORGAN SYSTEMS/BODY AREAS: Constitutional: Vital signs per nursing GENERAL:[No acute distress, non-toxic appearing.] HEAD: Normal with no signs of head trauma. EYES: EOMI, conjunctiva normal ENT: Hearing grossly intact LUNGS: Nonlabored breathing. HEART: [Regular rate and rhythm] ABD: [Soft], [nontender to palpation] There is reproducible left flank tenderness. No overlying skin rash. EXT: Normal range of motion SKIN: [No rashes or lesions.] NEURO: [Alert. No gross focal sensory or strength deficits.] PSYCH: Normal affect Course Vital Signs Vital signs: Vital Signs Temperature 36.6 C 10/24/25 09:32 Pulse Rate 98 10/24/25 09:32 Respiratory Rate 15 10/24/25 09:32 Blood Pressure 127/82 10/24/25 09:32 Pulse Oximetry 100 10/24/25 09:32 Oxygen Delivery Room Air 10/24/25 09:32 Temperature 36.6 C 10/24/25 09:32 Pulse Rate 98 10/24/25 09:32 Respiratory Rate 15 10/24/25 09:32 Blood Pressure 127/82 10/24/25 09:32 Pulse Oximetry 100 10/24/25 09:32 Oxygen Delivery Room Air 10/24/25 09:32 [facility] Differential Diagnosis Differential Diagnosis: 50-year-old male presents with left flank pain. Strongly suspect renal colic possibly with underlying hydronephrosis or infected kidney stone. Given the concern for possible infected stone will obtain CT abdomen pelvis IV contrast basic labs urinalysis treat the r3qwrim's pain plan for evaluation for current treatment results and re-evaluation Upon re-evaluation the patient's pain is significantly improved. He has a 5 mm obstructing stone at the left UVJ. I discussed this findings with him he has an established urologist discussed and this has a high likelihood of passing the patient's urinalysis is without evidence of infection he has no evidence of chronic kidney disease. He is appropriate for an outpatient trial multimodal pain medication Flomax and Zofran. Return precautions discussed not limited to fevers chills nausea vomiting worsening pain or any other concerning symptoms otherwise follow-up with urology later this week. All questions answered discharged in fair condition Lab Data [facility] Lab Attestation statement: I personally reviewed the patient's lab results. 10/24/25 10:24 10/24/25 10:24 Labs: Lab Results 10/24/25 Range/Units 10:24 WBC 10.1 H (4.5-10.0) K/mm3 RBC 4.75 (4.6-6.20) M/mm3 Hgb 14.6 (14.0-18.0) g/dL Hct 43.1 (42.0-52.0) % MCV 90.7 (80-100) fl MCH 30.7 (26-34) pg MCHC 33.9 (32-36) g/dl RDW 12.1 (11.5-14.5) % Plt Count 241 (150-375) k/mm3 MPV 9.3 (7.4-10.4) fl Immature Gran % (Auto) 0.2 (0-0.5) % Neut % (Auto) 80.2 H (45.5-73.1) % Lymph % (Auto) 13.7 L (18.3-44.2) % [place] % (Auto) 5.6 (2.6-8.5) % Eos % (Auto) 0.1 (0-4.4) % Baso % (Auto) 0.2 (0.2-1.2) % Lymph # (Auto) 1.38 (0.9-3.2) K/mm3 [place] # (Auto) 0.6 (0.1-0.6) K/mm3 Eos # (Auto) 0.0 (0-0.3) K/mm3 Baso # (Auto) 0.0 (0.0-0.1) K/mm3 Abs Immat Gran (auto) 0.02 (0.00-0.031) K/mm3 Absolute Neuts (auto) 8.1 H (1.3-6.7) K/mm3 Absolute Nucleated RBC 0.000 (0.0-0.012) K/mm3 Nucleated RBC % 0.0 (0.0-0.2) % PT 13.0 (11.1-14.7) Seconds INR 1.0 Sodium 143 (137-145) mmol/L Potassium 4.2 (3.4-5.0) mmol/L Chloride 108 H (98-107) mmol/L Carbon Dioxide 28 (22-30) mmol/L Anion Gap 7 (4-12) mmol/L BUN 14 (9-20) mg/dL Creatinine 1.17 (0.7-1.3) mg/dL Estim Creat Clear Calc 67 ml/min Estimated GFR > 60 (59 - ) Glucose 104 (65-110) mg/dL Calcium 9.4 (8.4-10.2) mg/dL Total Bilirubin 0.6 (0.2-1.3) mg/dL AST 33 (17-59) U/L ALT 35 (6-50) U/L Alkaline Phosphatase 60 (38-126) U/L Total Protein 8.0 (6.3-8.2) g/dL Albumin 4.5 (3.5-5.1) g/dL Lipase 165 (23-300) U/L Urine Color Yellow (Yellow) Urine Appearance Clear (Clear) Urine pH 5.5 (5.0-9.0) Ur Specific [place] 1.025 (1.001-1.035) Urine Protein Trace (Negative) mg/dL Urine Glucose (UA) Negative (Negative) mg/dL Urine Ketones Trace H (Negative) mg/dL Ur Blood (Man) Trace (Negative) Urine Nitrate Negative (Negative) Urine Bilirubin Negative (Negative) Urine Urobilinogen 0.2 (<2.0) mg/dL Leukocyte Esterase Rfl Negative (Negative) JON/UL Urine RBC 3-5 H (0-2) /hpf Urine WBC 0-5 (0-3) /hpf Ur Squamous Epith Cells None seen (Few) /hpf Urine Bacteria None seen /hpf Urine Casts 0-2 Imaging Data Attestation: I personally reviewed and interpreted this imaging study as follows: My impression: left UVJ stone with mild hydronephrosis Radiologist's impression: ITS Impressions Abdomen/Pelvis CT 10/24/25 11:26 IMPRESSION: 1. Persistent 5 mm stone left UVJ with persistent left hydronephrosis. Discharge Plan Discharge Clinical Impression: Renal colic on left side Patient Disposition: Home Condition: Stable Instructions: Kidney Stones (ED), How to Strain Your Urine (ED) Patient Language: Chilean Prescriptions: New ketorolac 10 mg tablet 10 mg PO Q8H 5 Days Qty: 20 5RF Rx Instructions: maximum total duration of 5 days from all oral, intranasal, or parenteral formulations tamsulosin 0.4 mg capsule 0.4 mg PO DAILY Qty: 14 0RF hydrocodone-acetaminophen 5-300 mg tablet 1 tablet PO BID PRN (Reason: pain) 5 Days Qty: 14 0RF ondansetron 4 mg tablet,disintegrating 4 mg PO Q8H Qty: 20 0RF No Action albuterol sulfate [Ventolin HFA] 90 mcg/actuation HFA aerosol inhaler 2 puff inhalation QID PRN (Reason: shortness of breath or wheezing) Qty: 8.5 0RF pantoprazole 40 mg tablet,delayed release (DR/EC) 40 mg PO tamsulosin [Flomax] 0.4 mg capsule 0.4 mg PO DAILY Qty: 5 0RF hydrocodone-acetaminophen 5-325 mg tablet 1 tablet PO Q4H PRN (Reason: pain) Qty: 10 0RF ibuprofen [IBU] 600 mg tablet 600 mg PO Q6H PRN (Reason: pain) Qty: 20 0RF hydrocodone-acetaminophen 5-325 mg tablet 1 tablet PO Q6H PRN (Reason: pain) Qty: 20 0RF tamsulosin 0.4 mg capsule 0.4 mg PO DAILY 7 Days Qty: 7 0RF hydrocodone-acetaminophen 5-325 mg tablet 1 tablet PO Q12H PRN (Reason: pain) Qty: 14 0RF tamsulosin [Flomax] 0.4 mg capsule 0.4 mg PO DAILY 14 Days Qty: 14 0RF ondansetron 4 mg tablet,disintegrating 4 mg PO Q8H PRN (Reason: nausea and vomiting) Qty: 14 0RF naproxen [Naprosyn] 500 mg tablet 500 mg PO BID 7 Days Qty: 14 0RF Follow-up/Referrals: PHYSICIAN NOT ON STAFF,NONSTAFF [Non-Staff] Tashi Alvarez MD [Physician, Urology] - 1 Week Time of Disposition: 11:52
[2025-10-24 10:37] LABS: Hematocrit 43.1 % (42.0-52.0); Hemoglobin 14.6 g/dL (14.0-18.0); Immature Granulocyte Percent A 0.2 % (0-0.5); Lymphocytes Absolute Auto 1.38 K/mm3 (0.9-3.2); Mean Corpuscular HGB Conc 33.9 g/dl (32-36); Mean Corpuscular Hemoglobin 30.7 pg (26-34); Mean Corpuscular Volume 90.7 fl (80-100); Nucleated Red Blood Cells Absolute Auto 0.000 K/mm3 (0.0-0.012); Nucleated Red Blood Cells Perc 0.0 % (0.0-0.2); Platelet Count Result 241 k/mm3 (150-375); Red Blood Count 4.75 M/mm3 (4.6-6.20); White Blood Count 10.1 K/mm3 (4.5-10.0)
[2025-10-24 10:41] LABS: Add Urine Microscopic? YES; Appearance Urine Clear (Clear); Glucose Urine UA Negative (Negative); Leukocyte Esterase Ur Negative LEU/UL (Negative); Nitrate Urine Negative (Negative); Non Pathogenic Casts 0-2; Specific Grav Ur 1.025 (1.001-1.035)
[2025-10-24 10:47] LABS: INR 1.0; Prothrombin Time 13.0 Seconds (11.1-14.7)
--- OUTSIDE RECORDS SUMMARY | 2025-10-24 10:47 | XMS_ITS | Clinical Summary ---
Author Organization [facility] [address] Address [address] [place] [address] Care Team Providers Care Senior Caregiver Name Role Phone Melani Lucia NP Primary Care Provider [phone] Allergies No known active allergies Medications famotidine (PEPCID) 20 mg tablet Take 1 tablet (20 mg total) by mouth 2 (two) times a day Active losartan (COZAAR) 50 mg tabletIndicatio ns:Hypertension , essential TAKE 1 TABLET BY MOUTH EVERY DAY 90 tablet 1 5 Active tirzepatide, weight loss, (Zepbound) 12.5 mg/0.5 mL pen injectorIndicat ions:Obesity (BMI 30-39.9) INJECT 0.5 ML (12.5 MG TOTAL) UNDER THE SKIN EVERY 7 DAYS 2 mL 5 Active tirzepatide, weight loss, (ZEPBOUND) 12.5 mg/0.5 mL pen injectorIndicat ions:Obesity (BMI 30-39.9) Inject 0.5 mL (12.5 mg total) under the skin every 7 days 2 mL 5 10/05/20 25 Discontinued Active Problems Problem Noted Date [...] provided Assessment & Plan (12/30/2024 3:10 PM MULTIMEDIA TEACHER): Discussed the patient's BMI. The BMI is above average. BMI management plan is completed. BMI Follow-up includes: nutrition counseling, exercise counseling and education provided. Assessment & Plan (12/09/2024 3:07 PM MULTIMEDIA TEACHER): Discussed the patients BMI: The BMI is above average BMI management is complete. BMI follow-up includes: Nutrition Counseling and education provided Assessment & Plan (11/25/2024 10:07 AM MULTIMEDIA TEACHER): Discussed the patients BMI: The BMI is above average BMI management is complete. BMI follow-up includes: Nutrition Counseling and education provided Screening for diabetes mellitus 11/25/2024 Hypertension, essential 11/25/2024 Weight gain 11/25/2024 Assessment & Plan (11/25/2024 10:30 AM MULTIMEDIA TEACHER): This is a significant, separately identifiable problem [...] Encounters Date Type Department Care Team Description 10/20/2025 Telephone [facility] Family Medicine [address] [address] Faires, Melani M., ERCO MACHINE OPERATOR Authorization/Certifi cation 09/16/2025 Nurse Triage [address] [place] [phone] Melani Lucia NP 09/11/[address] [address] Melani Lucia NP 08/18/2025 2:30 PM CDT Office Visit [address] [phone] Melani Lucia NP Hypertension, essential (Primary Dx); BMI 31.0-31.9,adult; Obesity (BMI 30-39.9); Screening for diabetes mellitus 08/04/2025 10:30 AM CDT Office Visit [address] [phone] Melani Lucia NP Hypertension, essential (Primary Dx); BMI 31.0-31.9,adult; Obesity (BMI 30-39.9); Flu vaccine need; Weight loss from Last 3 Months Immunizations Immunization Administration [...] Locke MD - 01/09/2025 1:27 PM CDT [facility] GI ENDOSCOPY Patient Name: Jaiden Witt Procedure Date: 01/09/2025 1:27 PM Date of : 1975 Admit Type: Outpatient Age: 49 Gender: Male Attending MD: Pete Locke M.D. Room: [facility] ENDOSCOPY ROOM 06 Note Status: Live Study Manager Override Procedure: Colonoscopy Indications: Abnormal Cologuard Referring [...] The scope was passed under direct vision.The [id number] colonoscope was introduced through theanus and advanced [...] On: 01/09/2025 1:27 PM Recognized by the [employer] for promoting quality in endoscopy Pete Locke MD ENDOSCOPY PROCEDURES Edit ed Result - Final from Last 3 Months or Most Recently Relevant to Health Maintenance Insurance [facility] [employer] [facility] Care Teams Senior Caregiver Relationship Specialty Start Date End Date Melani Lucia NP [address] [facility] [address] [place] [address] PCP - General Internal Medicine 11/25/24
--- OUTSIDE RECORDS SUMMARY | 2025-10-24 10:47 | XMS_ITS | Encounter Summary ---
Author Organization [facility] Address [facility] [place] [address] Care Team Providers Care Control Systems Engineer Name Role Phone Ernesto Mendieta MD Primary Care Provider [phone] Encounter Details Date Type Department Care Team (Late st Contact Info) Description 09/01/2017 [place] [address] , Generic Conversion, Social History Tobacco Use [...] on filedocumented in this encounter Care Teams Control Systems Engineer Relationship Specialty Start Date End Date Ernesto Mendieta MD PCP - General 02/17/15 documented as of this encounter
--- OUTSIDE RECORDS SUMMARY | 2025-10-24 10:47 | XMS_ITS | Encounter Summary ---
Author Organization [facility] Address [address] [place] [address] Care Team Providers Care Salesforce Business Analyst Name Role Phone Melani Lucia PARQUETRY LAYER Primary Care Provider [phone] Reason for Visit * Reason Onset Date Comments Abdominal Pain 09/16/2025 Encounter Details Date Type Department Care Team (Late st Contact Info) Description 09/16/2025 Nurse Triage [facility] Family Medicine [address] [place] [address] Melani Lucia, PARQUETRY LAYER [address] [place] [address] Social History Tobacco Use Types [...] Treasure Mills RN - 09/16/2025 10:03 AM DIRECTOR OF GIFT PLANNING Access Center Nurse Triage: Reason for Conversation [...] 1 hour Protocols Used Abdominal Pain - [id number] CTOR OF GIFT PLANNING * Telephone Encounter - Treasure Mills RN - 09/16/2025 9:54 AM DIRECTOR OF GIFT PLANNING Regarding: Moderate to Severe abdominal pain ----- Message from [place] R sent at 09/16/2025 9:50 AM DIRECTOR OF GIFT PLANNING ----- Symptom Based Call Chief Complaint(s): Moderate to Severe abdominal pain Duration: Today What type of symptom(s) is the patient experiencing? Red Flag. Is the patient concerned they are experiencing a medical emergency requiring an ambulance? No Additional Comments: patient states pain was so severe he had to leave work but denies any other symptoms Does message need to be routed? Yes-Action Needed CTOR OF GIFT PLANNING documented in this encounter Plan of Treatment Not on file documented as of this encounter Visit Diagnoses Not on filedocumented in this encounter Care Teams Salesforce Business Analyst Relationship Specialty Start Date End Date Melani Lucia NP [address] [address] PCP - General Internal Medicine 11/25/24 documented as of this encounter
--- OUTSIDE RECORDS SUMMARY | 2025-10-24 10:47 | XMS_ITS | Encounter Summary ---
Author Organization [facility] Healthcare Address [address] [place] [address] Care Team Providers Care Electron Beam Welding Machine Operator Name Role Phone Melani Lucia NP Primary Care Provider [phone] Reason for Visit * Reason Onset Date Comments Authorization/Certification 10/20/2025 Encounter Details Date Type Department Care Team (Late st Contact Info) Description 10/20/2025 Telephone [facility] Family Medicine [address] [place] [address] Melani Lucia NP [address] [place] [address] Authorization/Certifica tion Social History Tobacco Use Types Packs/Day Years [...] encounter Miscellaneous Notes * Telephone Encounter - Cecile Menard LPN - 10/20/2025 2:27 PM ORGANIC PREPARATION ANALYST Called and spoke to pharmacy who stated that PA was not needed and that pt already picked up and paid with coupon. NIC PREPARATION ANALYST * Telephone Encounter - Yuko Chester - 10/20/2025 2:00 PM CST Prior Authorization for Medication Medication(s) Name/Dose: tirzepatide, weight loss, (Zepbound) 12.5 mg/0.5 mL pen injector Is the patient out of the medication? Unknown Pharmacy that medication was sent to: [facility] [id number] [place] [address] Is insurance in chart accurate? YES Additional Comments: na Does message need to be routed? Yes-Action Needed NIC PREPARATION ANALYST documented in this encounter Plan of Treatment Not on file documented as of this encounter Visit Diagnoses Not on filedocumented in this encounter Care Teams Electron Beam Welding Machine Operator Relationship Specialty Start Date End Date Melani Lucia NP [address] [facility] [facility] [address] [place] [address] PCP - General Internal Medicine 11/25/24 documented as of this encounter
--- OUTSIDE RECORDS SUMMARY | 2025-10-24 10:47 | XMS_ITS | Clinical Summary ---
Author Organization [facility] Address [address] [place], [place] [id number] Care Team Providers Care Attraction Attendant Name Role Phone Ernesto Mendieta MD Primary Care Provider [phone] Social History Tobacco Use Types Packs/Day Years [...] this topic Meningococcal Vaccine Aged Out No amanda taj eligible based on patient's age to complete this topic Pneumococcal Vaccine: Pediat rics (0 to 5 Years) and At-Risk Patients (6 to 49 Years) Aged Out No longer eligible b ased on patient's age to complete this topic RSV Immunizations Under 20 Months Aged Out No longer eligible based on patient's age to complete this topic Care Teams Attraction Attendant Relationship Specialty Start Date End Date Ernesto Mendieta MD PCP - General 02/17/15
[2025-10-24 10:53] LABS: Alanine Aminotransferase 35 U/L (6-50); Albumin Level 4.5 g/dL (3.5-5.1); Alkaline Phosphatase 60 U/L (38-126); Anion Gap 7 mmol/L (4-12); Aspartate Amino Transferase 33 U/L (17-59); Bilirubin,Total 0.6 mg/dL (0.2-1.3); Blood Urea Nitrogen 14 mg/dL (9-20); Calcium 9.4 mg/dL (8.4-10.2); Carbon Dioxide 28 mmol/L (22-30); Chloride 108 mmol/L (98-107); Estimated CRCL calculation 67 ml/min; Estimated Glomerular Filt Rate > 60; Glucose 104 mg/dL (65-110); Lipase 165 U/L (23-300); Potassium 4.2 mmol/L (3.4-5.0); Sodium 143 mmol/L (137-145); Total Protein 8.0 g/dL (6.3-8.2)
[2025-10-24] MEDS: SODIUM CHLORIDE 0.9% IV 1,000 ML 999 ML IV CONT (10:57)
[2025-10-24] MEDS: ONDANSETRON INJ 4 MG/2 ML VIAL IV PUSH (10:57)
[2025-10-24] MEDS: KETOROLAC 30 MG/ML VIAL (*BKC) IV PUSH (10:58)
[2025-10-24 12:35] VITALS: BP 121/80; PULSE 79; RESP 16; O2SAT 100
== END 2025-10-24 12:35 | disposition home or self-care (01) ==
PROVIDERS: Emergency Provider Emergency Medicine
DX: N13.2 Hydronephrosis with renal and ureteral calculous obstruction (principal)
CPT/HCPCS: 36415; 74176; 80053; 81001; 83690; 85025; 85610; 96361; 96374; 96375; 99284; J1885; J2405; J7030